=== PATIENT | female | born 1975 | race Caucasian/White ===

== ENCOUNTER 2017-08-07 15:43 | Observation (INO) | payer BC ==
[2017-08-07] MEDS ORDERED: ONDANSETRON PF 4 MG/2 ML VIAL. IV PRN (16:15)
[2017-08-07] MEDS ORDERED: IV NORMAL SALINE 1,000ML 1,000 ML IV SCH (16:15)
[2017-08-07] MEDS ORDERED: MORPHINE SULFATE 2 MG/ML DISP.SYRIN. IV PRN (16:15)
== END 2017-08-07 18:00 | disposition short-term general hospital (02) ==
LOC: INTOOBSV 15:43 → 1 SOUTH 15:43
PROVIDERS: ADMIT Family Medicine; ATTEND Family Medicine
DX: R10.13 Epigastric pain (principal); R10.11 Right upper quadrant pain; R11.11 Vomiting without nausea; M79.662 Pain in left lower leg; I87.2 Venous insufficiency (chronic) (peripheral); K80.43 Calculus of bile duct with acute cholecystitis with obstruction
CPT/HCPCS: G0378; G0379

== ENCOUNTER → 2017-08-07 | Outpatient (CLI) | payer BC ==
--- NOTE | 2017-08-07 10:28 | RAD ---
Right upper quadrant ultrasound 08/07/2017 Indication: Right upper quadrant pain. Comparison study: None Discussion: Ultrasound evaluation of the right upper quadrant performed. Static images are submitted to PACS. Visualized portions of the pancreas are unremarkable. Visualized aorta and IVC are unremarkable. Gallbladder is normal in appearance without evidence of wall thickening, stones, or sludge. Portal venous flows in the normal direction. The common bile duct measures up to 6 mm in diameter. There is a small echogenic focus seen within the common bile duct. Findings raise concern for choledocholithiasis. The liver is normal in appearance measuring 15 cm longitudinally. The right kidney is normal in appearance measuring 10 cm in length. Impression: Mild prominence of the common bile duct with echogenic focus seen in the common bile duct. Findings raise concern for choledocholithiasis. No sonographic evidence of cholelithiasis is seen. Correlate with serum bilirubin levels and consider MRCP or ERCP for further evaluation as clinically indicated.
== END | disposition home or self-care (01) ==
LOC: US 09:01
PROVIDERS: ATTEND Physician Assistant
DX: R10.11 Right upper quadrant pain (principal); R11.11 Vomiting without nausea; R10.13 Epigastric pain
CPT/HCPCS: 76705